=== PATIENT | female | born 1955 | race African-American/Black ===

== ENCOUNTER 2020-07-25 15:57 | Outpatient (CLI) | payer MEDICARE | END 2020-07-25 15:58 | disposition home or self-care (01) | LOC: BICMAMMO 15:57 | PROVIDERS: ATTEND Internal Medicine | DX: Z12.31 Encounter for screening mammogram for malignant neoplasm of breast (principal) | CPT/HCPCS: 77063; 77067 ==

== ENCOUNTER 2020-07-27 13:30 | Outpatient (CLI) | payer MEDICARE | END 2020-07-27 13:31 | disposition home or self-care (01) | LOC: BICMAMMO 13:30 | PROVIDERS: ATTEND Internal Medicine | DX: Z13.820 Encounter for screening for osteoporosis (principal); Z78.0 Asymptomatic menopausal state | CPT/HCPCS: 77080 ==

== ENCOUNTER 2020-08-01 13:33 | Outpatient (CLI) | payer MEDICARE | END 2020-08-01 13:34 | disposition home or self-care (01) | LOC: ULT 13:33 → CT 13:34 | PROVIDERS: ATTEND Internal Medicine | DX: Z12.2 Encounter for screening for malignant neoplasm of respiratory organs (principal); Z87.891 Personal history of nicotine dependence; R59.0 Localized enlarged lymph nodes; R91.8 Other nonspecific abnormal finding of lung field | CPT/HCPCS: 71271 ==

== ENCOUNTER 2020-08-02 13:45 | Outpatient (CLI) | payer MEDICARE | END 2020-08-02 13:46 | disposition home or self-care (01) | LOC: ULT 13:45 | PROVIDERS: ATTEND Internal Medicine | DX: R60.0 Localized edema (principal); I08.8 Other rheumatic multiple valve diseases | CPT/HCPCS: 93306 ==

== ENCOUNTER 2020-08-24 07:39 | Outpatient (CLI) | payer MEDICARE ==
[2020-08-24 08:16] LABS: Estimated GFR-MDRD - POC Greater than 90
== END 2020-08-24 07:40 | disposition home or self-care (01) ==
LOC: BICCT 07:39
PROVIDERS: ATTEND Internal Medicine
DX: R93.89 Abnormal findings on diagnostic imaging of other specified body structures (principal); R59.0 Localized enlarged lymph nodes; R19.00 Intra-abdominal and pelvic swelling, mass and lump, unspecified site; K86.89 Other specified diseases of pancreas; J98.4 Other disorders of lung
CPT/HCPCS: 71260; 74177; 82565

== ENCOUNTER 2020-10-05 10:16 | Outpatient (CLI) | payer MEDICARE | END 2020-10-05 10:17 | disposition home or self-care (01) | LOC: PET 10:16 | PROVIDERS: ATTEND Internal Medicine Hematology & Oncology | DX: C82.13 Follicular lymphoma grade II, intra-abdominal lymph nodes (principal) | CPT/HCPCS: 78815; A9552 ==

== ENCOUNTER 2020-11-23 09:10 | Outpatient (CLI) | payer MEDICARE ==
[2020-11-23 23:32] LABS: SARS-CoV-2 PCR by NAA Not Detected (NotDetected)
== END 2020-11-23 09:11 | disposition home or self-care (01) ==
LOC: LABBT 09:10
PROVIDERS: ATTEND Internal Medicine Gastroenterology
DX: Z01.812 Encounter for preprocedural laboratory examination (principal); Z12.11 Encounter for screening for malignant neoplasm of colon; Z20.822 Contact with and (suspected) exposure to COVID-19
CPT/HCPCS: U0003; U0005

== ENCOUNTER 2020-11-28 08:05 | Day surgery (SDC) | payer MEDICARE ==
[2020-11-27 10:40] VITALS: BMI 27.4
[2020-11-28] MEDS ORDERED: Fentanyl 100 MCG/2 ML VIAL ONE (09:12)
[2020-11-28] MEDS ORDERED: Lidocaine 1% PF 5 ML VIAL ONE (09:48)
[2020-11-28] MEDS ORDERED: Glycopyrrolate 0.2 MG/ML 5 ML SYRINGE ONE (09:48)
[2020-11-28] MEDS ORDERED: PROPOFOL 200 MG/20 ML VIAL ONE (09:48)
[2020-11-28] MEDS ORDERED: PHENYLEPHRINE-NS 100 MCG/ML 10 ML SYRINGE ONE (09:48)
== END 2020-11-28 11:15 | disposition home or self-care (01) ==
LOC: SDC 08:05
PROVIDERS: ATTEND Internal Medicine Gastroenterology
PROC: 0DBN8ZX Excision of Sigmoid Colon, Via Natural or Artificial Opening Endoscopic, Diagnostic (ICD-10-PCS; principal; 2020-11-28)
DX: D12.5 Benign neoplasm of sigmoid colon (principal); Q43.8 Other specified congenital malformations of intestine; J44.9 Chronic obstructive pulmonary disease, unspecified; G89.29 Other chronic pain; M54.9 Dorsalgia, unspecified; Z85.72 Personal history of non-Hodgkin lymphomas; Z87.891 Personal history of nicotine dependence; Z79.899 Other long term (current) drug therapy; Z88.5 Allergy status to narcotic agent; Z88.8 Allergy status to other drugs, medicaments and biological substances
CPT/HCPCS: 88305; J2704; J3010

== ENCOUNTER 2020-12-29 07:40 | Outpatient (CLI) | payer MEDICARE | END 2020-12-29 07:41 | disposition home or self-care (01) | LOC: PET 07:40 | PROVIDERS: ATTEND Internal Medicine Hematology & Oncology | DX: C82.10 Follicular lymphoma grade II, unspecified site (principal) | CPT/HCPCS: 78815; A9552 ==

== ENCOUNTER 2021-03-27 07:37 | Outpatient (CLI) | payer MEDICARE | END 2021-03-27 07:38 | disposition home or self-care (01) | LOC: PET 07:37 | PROVIDERS: ATTEND Internal Medicine Hematology & Oncology | DX: C82.13 Follicular lymphoma grade II, intra-abdominal lymph nodes (principal) | CPT/HCPCS: 78815; A9552 ==

== ENCOUNTER 2021-09-07 08:42 | Outpatient (CLI) | payer MEDICARE ==
[2021-09-07] MEDS ORDERED: Iopamidol 370 76% 100 ML VIAL ONE (12:00)
== END 2021-09-07 08:43 | disposition home or self-care (01) ==
LOC: CT 08:42
PROVIDERS: ATTEND Internal Medicine Hematology & Oncology
DX: C82.13 Follicular lymphoma grade II, intra-abdominal lymph nodes (principal)
CPT/HCPCS: 71260; 74177